=== PATIENT | female | born 1985 | race Caucasian/White ===

== ENCOUNTER 2016-09-11 18:03 | Emergency (ER) | payer SELFPAY ==
[~2016-09-11] VITALS: Ht 175.2 cm; Wt 122.5 kg
[~2016-09-11 18:03] MED LIST: COLACE-T100 MG PO; IBU-8800 MG PO; IRON CHELATED325 MG PO; MACRODANTIN100 MG PO; MOTRIN800 MG PO; NAPROSYN500 MG PO; PERCOCET 325 MG1 TA2 PO; PRENATAL1 TA1 PO; SPRINTEC 35 MCG1 TA1 PO; SYNTHROID0.088 MG PO; TRAMADOL HCL50 MG PO; ULTRAM50 MG PO; ZOFRAN8 MG PO
[2016-09-11] MEDS ORDERED: SYNTHROID25 MCG PO (18:08)
[2016-09-11 18:42] LABS: BILIRUBIN NEGATIVE (NEGATIVE); BLOOD NEGATIVE (NEGATIVE); CLARITY SL CLOUDY (CLEAR); COLOR YELLOW (YELLOW); GLUCOSE NEGATIVE (NEGATIVE); KETONE NEGATIVE (NEGATIVE); LEUKO ESTERASE 1+ (NEGATIVE); NITRITE NEGATIVE (NEGATIVE); PROTEIN NEGATIVE (NEGATIVE); SPECIFIC GRAVITY >= 1.030 (1.005-1.030)
[2016-09-11 18:56] LABS: BACTERIA TRACE; MUCOUS 1+; RBC 0-2 rbc/hpf (0-2); URINE REFLEX COMMENT YES (NO); WBC 31-40 wbc/hpf (0-5); YEAST TRACE
[2016-09-11] MEDS ORDERED: BACTRIM DS 8001 TA1 PO (19:27)
[2016-09-11] MEDS ORDERED: PYRIDIUM200 M1 PO (19:27)
== END 2016-09-11 19:51 | disposition home or self-care (01) ==
LOC: ED 18:03
PROVIDERS: Nurse Practitioner Family
DX: N39.0 Urinary tract infection, site not specified (principal); Z90.49 Acquired absence of other specified parts of digestive tract; Z88.6 Allergy status to analgesic agent; Z88.5 Allergy status to narcotic agent

== ENCOUNTER 2017-12-11 07:34 | Emergency (ER) | payer SELFPAY ==
[~2017-12-11] VITALS: Ht 175.2 cm; Wt 135.6 kg
[~2017-12-11 07:34] MED LIST changes: +BACTRIM DS 8001 TA1 PO; +PYRIDIUM200 M1 PO; +SYNTHROID25 MCG PO
== END 2017-12-11 08:38 | disposition home or self-care (01) ==
LOC: ED 07:34
DX: M25.571 Pain in right ankle and joints of right foot (principal); E66.01 Morbid (severe) obesity due to excess calories; E03.9 Hypothyroidism, unspecified; Z88.6 Allergy status to analgesic agent; Z88.8 Allergy status to other drugs, medicaments and biological substances; Z79.899 Other long term (current) drug therapy; Z68.41 Body mass index [BMI] 40.0-44.9, adult

== ENCOUNTER → 2017-12-30 | Outpatient (CLI) | payer SELFPAY | END | disposition home or self-care (01) | LOC: US 08:59 | DX: E04.1 Nontoxic single thyroid nodule (principal); E03.9 Hypothyroidism, unspecified ==

== ENCOUNTER 2018-07-27 11:12 | Emergency (ER) | payer BC ==
[~2018-07-27] VITALS: Ht 175.2 cm; Wt 113.4 kg
[2018-07-27] MEDS ORDERED: ROBAXIN500 M1 PO (12:43)
[2018-07-27] MEDS ORDERED: IBUPROFEN600 MG PO (12:43)
== END 2018-07-27 12:48 | disposition home or self-care (01) ==
LOC: ED 11:12
DX: S16.1XXA Strain of muscle, fascia and tendon at neck level, initial encounter (principal); S46.212A Strain of muscle, fascia and tendon of other parts of biceps, left arm, initial encounter; S46.912A Strain of unspecified muscle, fascia and tendon at shoulder and upper arm level, left arm, initial encounter; Z88.6 Allergy status to analgesic agent; Z88.8 Allergy status to other drugs, medicaments and biological substances; Z79.899 Other long term (current) drug therapy; W01.0XXA Fall on same level from slipping, tripping and stumbling without subsequent striking against object, initial encounter; Y93.89 Activity, other specified; Y92.89 Other specified places as the place of occurrence of the external cause; Y99.8 Other external cause status

== ENCOUNTER → 2019-11-20 | Outpatient (CLI) | payer BC ==
[~2019-11-20] MED LIST changes: +IBUPROFEN600 MG PO; +MACROBID100 M1 PO; +ROBAXIN500 M1 PO
== END | disposition home or self-care (01) ==
LOC: LAB 12:33 → US 13:00
DX: E04.1 Nontoxic single thyroid nodule (principal); N93.8 Other specified abnormal uterine and vaginal bleeding

== ENCOUNTER → 2021-06-26 | Outpatient (CLI) | payer OTHER | END | disposition home or self-care (01) | LOC: US 15:49 | PROVIDERS: ATTEND Internal Medicine Endocrinology, Diabetes & Metabolism | DX: E04.2 Nontoxic multinodular goiter (principal) ==

== ENCOUNTER → 2022-03-31 | Outpatient (CLI) | payer OTHER | END | disposition home or self-care (01) | LOC: US 08:30 | PROVIDERS: ATTEND Nurse Practitioner Women's Health | DX: N83.201 Unspecified ovarian cyst, right side (principal); N83.202 Unspecified ovarian cyst, left side; N94.6 Dysmenorrhea, unspecified ==

== ENCOUNTER → 2022-07-23 | Outpatient (CLI) | payer OTHER | END | disposition home or self-care (01) | LOC: US 10:30 | PROVIDERS: ATTEND Nurse Practitioner Women's Health | DX: N83.201 Unspecified ovarian cyst, right side (principal); N83.202 Unspecified ovarian cyst, left side ==